=== PATIENT | male | born 1975 | race Caucasian/White ===

== ENCOUNTER 2020-01-18 15:07 | Observation (INO) ==
[2020-01-18] MEDS ORDERED: ONDANSETRON 4 MG/2 ML VIAL IV STA (16:36)
[2020-01-18] MEDS ORDERED: LACTATED RINGERS 1,000 ML IV ONE (16:36)
[2020-01-18 17:07] LABS: Basophils % 0.2 % (0.0-0.8); Hemoglobin 16.5 GM/DL (14.0-18.0); Immature Granulocytes % 0.5 %; Immature Granulocytes Absolute 0.07 #; Lymphocytes # 0.9 10*3/uL (1.4-4.0); Lymphocytes % 6.9 % (21.2-54.2); Mean Corpuscular Volume 90.6 FL (87-102); Monocytes % 9.5 % (1.7-12.7); Neutrophils % 82.9 % (38.7-73.9); Platelet Count 187 T/CUMM (130-400); Red Blood Count 5.52 MC/CUMM (3.8-5.5); Red Cell Distribution Width 12.8 % (9.3-17.3); White Blood Count 13.2 T/CUMM (4-12)
[2020-01-18 17:29] LABS: Bilirubin,Total 1.2 MG/DL (0.2-1.0); Calcium 9.8 MG/DL (8.5-10.1); Osmolality,Calculated 269.1 MOS/KG (273-304); Total Protein 8.3 G/DL (6.4-8.3)
[2020-01-18] MEDS ORDERED: KETOROLAC 30 MG/1 ML VIAL ONE (19:46)
[2020-01-18] MEDS ORDERED: LABETALOL 20 MG/4 ML SYRINGE IV ONE (19:46)
[2020-01-18] MEDS ORDERED: ACETAMINOPHEN 325 MG TABLET PO PRN (19:47)
[2020-01-18] MEDS ORDERED: LABETALOL 20 MG/4 ML SYRINGE IV STA (19:49)
[2020-01-18] MEDS ORDERED: KETOROLAC 30 MG/1 ML VIAL IV STA (19:49)
[2020-01-18] MEDS: ONDANSETRON 4 MG/2 ML VIAL IV PRN (20:50)
[2020-01-18] MEDS: LACTATED RINGERS 1,000 ML IV SCH (20:54)
[2020-01-18] MEDS ORDERED: hydrALAZINE 20 MG/1 ML VIAL IV ONE (22:35)
[2020-01-18] MEDS ORDERED: hydrALAZINE 20 MG/1 ML VIAL IV PRN (23:08)
[2020-01-19] MEDS: LACTATED RINGERS 1,000 ML IV SCH (05:07)
[2020-01-19] MEDS: ONDANSETRON 4 MG/2 ML VIAL IV PRN ×2 (05:28→12:55)
[2020-01-19] MEDS ORDERED: ceFAZolin 2,000 MG in PREMIX 1 EACH IV ONE (06:00)
[2020-01-19] MEDS ORDERED: ONDANSETRON 4 MG/2 ML VIAL IV ONE (08:20)
[2020-01-19] MEDS ORDERED: PANTOPRAZOLE 40 MG TABLET PO SCH (09:00)
[2020-01-19] MEDS ORDERED: METOCLOPRAMIDE 10 MG/2 ML VIAL ONE (09:11)
[2020-01-19] MEDS ORDERED: FAMOTIDINE 20 MG/2 ML VIAL IV ONE (09:11)
[2020-01-19] MEDS ORDERED: BUPIVACAINE MPF 0.25% 30 ML VIAL ONE (09:45)
[2020-01-19] MEDS ORDERED: LIDOCAINE 1%/EPI INJ 20 ML VIAL ONE (09:45)
[2020-01-19] MEDS ORDERED: TISSUE ADHESIVE 1 EACH APPLICATOR TOP ONE (09:54)
[2020-01-19] MEDS ORDERED: LIDOCAINE 2% 5 ML VIAL ONE (10:33)
[2020-01-19] MEDS ORDERED: propofoL 200 MG/20 ML VIAL IV ONE (10:33)
[2020-01-19] MEDS ORDERED: SEVOFLURANE 1 UNIT/15 MINUTE INH ONE (10:33)
[2020-01-19] MEDS ORDERED: SUCCINYLCHOLINE 200 MG/10 ML VIAL ONE (10:34)
[2020-01-19] MEDS ORDERED: MIDAZOLAM 2 MG/2 ML VIAL ONE (10:34)
[2020-01-19] MEDS ORDERED: fentaNYL 100 MCG/2 ML VIAL ONE (10:34)
[2020-01-19 16:24] VITALS: BP 146/92
== END 2020-01-19 16:05 | disposition home or self-care (01) ==
LOC: N.EDINP 15:07 → N.ED 15:07 → N.3E 21:03
PROVIDERS: ADMIT Surgery; ATTEND Surgery